=== PATIENT | female | born 1975 | race Two or more races ===

== ENCOUNTER 2019-09-02 22:55 | Emergency (ER) | payer OTHER ==
[~2019-09-02] VITALS: Ht 157.5 cm; Wt 108.9 kg
[2019-09-02 23:35] VITALS: BP 142/80
[2019-09-03] MEDS ORDERED: IBUPROFEN 800 MG TAB PO ONE (01:15)
== END 2019-09-03 01:22 | disposition home or self-care (01) ==
LOC: ER 22:59
DX: S00.83XA Contusion of other part of head, initial encounter (principal); F17.210 Nicotine dependence, cigarettes, uncomplicated; Z98.51 Tubal ligation status; W22.8XXA Striking against or struck by other objects, initial encounter; Y93.89 Activity, other specified; Y92.89 Other specified places as the place of occurrence of the external cause; Y99.8 Other external cause status
CPT/HCPCS: 70450